=== PATIENT | female | born 1945 ===

== ENCOUNTER 2022-06-08 10:51 | Day surgery (SDC) | payer MEDICARE, MEDICAID ==
[2022-06-07 10:13] VITALS: BMI 32.4
[2022-06-08 12:21] LABS: Hemoglobin 16.1 g/dL (12.0-16.0)
[2022-06-08 12:51] LABS: Anion Gap 15 mmol/L (10-20); BUN (Urea Nitrogen) 18 mg/dL (9.8-20.1); Calc. Creatinine Clearance 53 mL/min (70-130); Calcium 9.4 mg/dL (7.8-10.44); Carbon Dioxide 23 mmol/L (23-31); Chloride 106 mmol/L (98-107); Estimated GFR 64; Glucose 85 mg/dL (83-110); Potassium 4.9 mmol/L (3.5-5.1); Sodium 139 mmol/L (136-145)
[2022-06-08] MEDS ORDERED: EPINEPHrine 1 MG/ML AMP ONE (13:12)
[2022-06-08] MEDS ORDERED: Lidocaine 1% (PF) 30 ML VIAL ONE (13:12)
[2022-06-08] MEDS ORDERED: Bacitracin Zinc Ointment 30 gm TUBE ONE (13:12)
[2022-06-08] MEDS ORDERED: fentaNYL 50 mcg/mL 1 mL Vial ONE ×2 (13:30→15:13)
[2022-06-08] MEDS ORDERED: Famotidine/PF 20 mg/2ml Vial ONE (13:30)
[2022-06-08] MEDS ORDERED: Dexamethasone 20 MG/5 ML VIAL ONE (14:00)
[2022-06-08] MEDS ORDERED: Lidocaine 1% PF 5 ML VIAL ONE (14:00)
[2022-06-08] MEDS ORDERED: Ketorolac Tromethamine 30 MG/ML VIAL ONE (14:00)
[2022-06-08] MEDS ORDERED: ePHEDrine Sulfate 50 MG/10 ML VIAL ONE (14:00)
[2022-06-08] MEDS ORDERED: PROPOFOL 200 MG/20 ML VIAL ONE (14:00)
[2022-06-08] MEDS ORDERED: Ondansetron PF 4 MG/2 ML Vial ONE (14:00)
== END 2022-06-08 17:20 ==
LOC: SDC 10:51
PROVIDERS: ATTEND Specialist
PROC: 0HB2XZZ Excision of Right Ear Skin, External Approach (ICD-10-PCS; principal; 2022-06-08)
DX: C44.212 Basal cell carcinoma of skin of right ear and external auricular canal (principal); I10 Essential (primary) hypertension; Z79.82 Long term (current) use of aspirin; Z79.899 Other long term (current) drug therapy; Z88.5 Allergy status to narcotic agent; Z88.8 Allergy status to other drugs, medicaments and biological substances
CPT/HCPCS: 14060; 80048; 85014; 85018; 93005; J3010; 88305; 93010; J0171; J1100; J1885; J2001; J2405; J2704; S0028